=== PATIENT | female | born 1945 | race Two or more races ===

== ENCOUNTER 2019-11-23 11:46 | Emergency (ER) | payer MEDICARE, OTHER ==
[2019-11-23 12:14] VITALS: BMI 34.0
--- NOTE | 2019-11-23 12:25 | PDOC ---
History of Present Illness - General History Source: Patient Exam Limitations: Language Barrier - History of Present Illness Initial Comments: 11/23/19 13:09 74-year-old female past medical history hypertension hyperlipidemia heart arrhythmia on Eliquis presents the ED BIBA after trip and fall striking her head on concrete. Patient states that she was getting into a cab and tripped on the curb hitting her head on the ground denies loss of consciousness remembers events before and after denies hitting any other part of her body was able to get up on her own denies dizziness headache nausea vomiting. Patient states that the fall was mechanical in nature and that she was not dizzy lightheaded or felt like she was going to pass out before after the fall . Patient is currently complaining of burning sensation on the right side of her face where she has a open abrasion. Of note pt ambulates with a cane at baseline. Pt otherwise denies: fevers, chills, syncope, lightheadedness, dizziness, headaches, changes in vision, changes in hearing, neck pain, chest pain, shortness of breath, palpitations, back pain, abdominal pain 11/23/19 13:11 <Jairo Montalvo - Last Filed: 11/23/19 13:50> <Destiny Hart - Last Filed: 11/23/19 14:32> - General Chief Complaint: Injury Stated Complaint: FALL/HEAD INJ Time Seen by Provider: 11/23/19 12:12 Past History - Medical History Anemia: No Asthma: No Cancer: No Cardiac Disorders: Yes (irregular heart rate) CVA: No COPD: No CHF: No Dementia: No Diabetes: No GI Disorders: No Disorders: No HTN: Yes Hypercholesterolemia: Yes Liver Disease: No Seizures: No Thyroid Disease: No - Surgical History Abdominal Surgery: No Appendectomy: Yes Cardiac Surgery: No Cholecystectomy: No Lung Surgery: No Neurologic Surgery: No Orthopedic Surgery: No - Psycho-Social/Smoking History Smoking Status: No Smoking History: Never smoked Number of Cigarettes Smoked Daily: 0 - Substance Abuse Hx (Audit-C & DAST Scrn) How often the patient has a drink containing alcohol: Never Score: In Men: 4 or > Positive; In Women: 3 or > Positive: 0 Screen Result (Pos requires Nsg. Audit-10AR): Negative In the last yr the pt used illegal drug/Rx for NonMed reason: No Score: Yes response is considered Positive: 0 Screen Result (Positive result requires Nsg. DAST-10): Negative <Jairo Mnotalvo - Last Filed: 11/23/19 13:50> <Destiny Hart - Last Filed: 11/23/19 14:32> - Medical History Allergies/Adverse Reactions: Allergies Allergy/AdvReac Type Severity Reaction Status Date / Time No Known Drug Allergies Allergy Verified 11/23/19 11:59 Home Medications: Ambulatory Orders Tramadol HCl [Ultram] 50 mg PO Q6H PRN 05/02/12 Amiodarone HCl 200 mg PO DAILY 11/23/19 Apixaban [Eliquis] 5 mg PO DAILY 11/23/19 Atorvastatin Ca [Lipitor] 40 mg PO HS 11/23/19 Calcium 500Mg/Vit-D 200 Units [Os-Rene 500+D -] 1 combo PO BID 11/23/19 Ferrous Sulfate 325 mg PO DAILY 11/23/19 Furosemide [Lasix] 40 mg PO DAILY 11/23/19 Guaifenesin Dm [Robitussin Dm -] 10 ml PO Q4H 11/23/19 Levothyroxine [Synthroid -] 25 mcg PO DAILY 11/23/19 Lisinopril [Zestril] 2.5 mg PO DAILY 11/23/19 Omeprazole 40 mg PO DAILY 11/23/19 Review of Systems - Review of Systems Constitutional: No: Chills, Fever, Weakness HEENTM: No: Eye Pain, Blurred Vision, Ear Pain, Nose Pain, Nose Bleeding Respiratory: No: Shortness of Breath Cardiac (ROS): No: Chest Pain ABD/GI: No: Abdominal Distended, Nausea, Vomiting : No: Dysuria Musculoskeletal: No: Back Pain, Joint Pain, Muscle Weakness Neurological: No: Headache, Numbness, Paresthesia, Seizure, Tingling, Tremors, Weakness, Dizziness <Jairo Montalvo - Last Filed: 11/23/19 13:50> *Physical Exam - Vital Signs Last Vital Signs Temp Pulse Resp BP Pulse Ox 98 F 62 16 181/72 H 100 11/23/19 11:48 11/23/19 11:48 11/23/19 11:48 11/23/19 11:48 11/23/19 11:48 - Physical Exam 11/23/19 13:12 Gen: AAOx 3, no acute distress, comfortable, no signs of respiratory distress HENT: normocephalic abrasion no acive bleeding with swelling to right maxilla with overlying contusion to maxilla and frontal scalp. Nasal mucosa without erythema. Oropharynx without erythema or exudates. Mucous membranes moist. EYES: PERRL, EOM intact, conjunctiva pink., no signs of entrapment, no pain on EOMI NECK: supple; trachea midline; no JVD, no lymphadenopathy, or thyromegaly CV: RRR no murmurs, gallops, or rubs. CHEST: CTA b/l no wheezing, rales or rhonchi ABD: +BS/ND. no TTP; soft, no rebound, no guarding EXTREMITY: no cyanosis or erythema. 2+ dorsalis pedis, posterior tibial, and radial pulse. No pedal edema; no calf swelling or tenderness SKIN: no rash, warm and dry, no diaphoresis HEME: no purpura or ecchymosis NEURO: normal speech, CN II-XII intact, sensation intact, normal gait, no cerebellar deficits, finger to nose, rapid alternating movement intact negative rhomberg, MS: 5/5 strength in all extremities, FROM intact in all extremities. <Jairo Montalvo - Last Filed: 11/23/19 13:50> - Vital Signs Last Vital Signs Temp Pulse Resp BP Pulse Ox 98 F 62 16 181/72 H 100 11/23/19 11:48 11/23/19 11:48 11/23/19 11:48 11/23/19 11:48 11/23/19 11:48 <Destiny Hart - Last Filed: 11/23/19 14:32> ED Treatment Course - RADIOLOGY Radiology Studies Ordered: Category Date Time Status CERVICAL SPINE CT W/O CONTR [CT] Stat CT Scan 11/23/19 12:[address] W/O CONTRAST [CT] Stat CT Scan 11/23/19 12:[address] WITHOUT CONTRAST [CT] Stat CT Scan 11/23/19 12:12 Ordered <Jairo Montalvo - Last Filed: 11/23/19 13:50> Medical Decision Making - Medical Decision Making 11/23/19 13:14 74-year-old female multiple comorbidities on Eliquis status post trip and fall with head trauma denies loss of consciousness Hypertensive but denies symptoms of hypertensive emergency rest of vital signs stable Rest of physical exam benign low suspicion for any other sources of bleeding We will obtain CT head CT cervical spine as well as CT maxillofacial Will update Tetanus Will reassess based on result CT head, cervical and facial bones negative for any acute findings except soft tissue swelling. Incidental findings explained to pt. Pt is safe and stable for discharge with close follow up with PCP. Strict return precautions given. Supportive care instructions explained and given to pt. Reasons to return emergently to ER explained and given. Importance of follow up with PMD and other specialists as indicated stressed to pt. Pt verbalized understanding of instructions. Pt to follow up with PMD in 2 days. 11/23/19 13:47 <Jairo Montalvo - Last Filed: 11/23/19 13:50> - Medical Decision Making The patient was seen and evaluated in conjunction with midlevel provider under my direct supervision, ancillary studies were reviewed. I agree with the plan as outlined withYANICK Montalvo. HPI, workup/dispo as outlined. VS reviewed, wnl. CT head, facial cervical spine to evaluate for injuries and bleed no acute pathologies noted Anticipate discharge, pcp followup, return precautions 11/23/19 13:22 11/23/19 14:32 <Destiny Hart - Last Filed: 11/23/19 14:32> Discharge - Discharge Information Problems reviewed: Yes - Admission No <Jairo Montalvo - Last Filed: 11/23/19 13:50> <Destiny Hart - Last Filed: 11/23/19 14:32> - Discharge Information Clinical Impression/Diagnosis: Head trauma Qualifiers: Encounter type: initial encounter Qualified Code(s): S09.90XA - Unspecified injury of head, initial encounter Condition: Stable Disposition: HOME - Follow up/Referral Referrals: Anderson Nolasco [Primary Care Provider] - - Patient Discharge Instructions Patient Printed Discharge Instructions: DI for Closed Head Injury Additional Instructions: You must follow up with your doctor BETHEL ORDOÑEZ POSIBLE Print Language: KINYARWANDA - Post Discharge Activity
[2019-11-23] MEDS ORDERED: DIPHTH,PERTUSS(ACELL),TET 0.5 ML DISP.SYRIN IM ONE ×2 (13:46→13:53)
[2019-11-23 15:15] VITALS: BP 146/78; PULSE 88; TEMP 98.5
== END 2019-11-23 15:15 | disposition home or self-care (01) ==
LOC: JER 11:46
PROC: 3E0234Z Introduction of Serum, Toxoid and Vaccine into Muscle, Percutaneous Approach (ICD-10-PCS; principal; 2019-11-23)
DX: S09.90XA Unspecified injury of head, initial encounter (principal); W01.0XXA Fall on same level from slipping, tripping and stumbling without subsequent striking against object, initial encounter
CPT/HCPCS: 70450-TC; 70486-TC; 72125-TC; 90715; 99284-25

== ENCOUNTER 2020-05-06 05:51 | Emergency (ER) | payer MEDICARE, OTHER ==
[2020-05-06] MEDS ORDERED: ACETAMINOPHEN 1000 MG/100 ML VIAL (NON FORMULARY) IVPB ONE (06:02)
[2020-05-06 06:03] VITALS: TEMP 98.1; BMI 27.3
[2020-05-06] MEDS ORDERED: SODIUM CHLORIDE 1,000 ML IV SCH (06:15)
[2020-05-06 07:03] LABS: HEMATOCRIT 33.2 % (32.4-45.2); HEMOGLOBIN 10.6 GM/dL (10.7-15.3); MCH 23.2 pg (25.7-33.7); MCHC 32.1 g/dl (32.0-36.0); MEAN CELL VOLUME 72.4 fl (80-96); MEAN PLT VOLUME 8.2 fl (7.5-11.1); PLATELET COUNT 200 K/MM3 (134-434); RBC 4.58 M/mm3 (3.60-5.2); RDW 17.9 % (11.6-15.6); WHITE BLOOD COUNT 4.7 K/mm3 (4.0-10.0)
[2020-05-06 07:25] LABS: INR 1.4 (0.83-1.09); PROTHROMBIN TIME (PATIENT) 16.8 SEC (9.7-13.0)
[2020-05-06 07:28] LABS: ACTIVATED PTT 33.6 SECONDS (25.2-36.5)
[2020-05-06 07:30] LABS: CHLORIDE 105 mmol/L (98-107); SODIUM 137 mmol/L (136-145)
[2020-05-06 07:32] LABS: CALCIUM 8.1 mg/dL (8.5-10.1)
[2020-05-06 07:33] LABS: ANION GAP 7 MMOL/L (8-16); BLOOD UREA NITROGEN 16.4 mg/dL (7-18); CO2 25 mmol/L (21-32); GLUCOSE,RANDOM 110 mg/dL (74-106)
[2020-05-06 07:36] LABS: SGOT/AST 49 U/L (15-37); SGPT/ALT 52 U/L (13-61)
[2020-05-06 07:37] LABS: BILIRUBIN,TOTAL 0.6 mg/dL (0.2-1)
[2020-05-06 07:38] LABS: ALK PHOS 74 U/L (45-117)
[2020-05-06] MEDS ORDERED: LIDOCAINE 5% TOPICAL PATCH TP ONE (08:23)
[2020-05-06] MEDS ORDERED: LIDOCAINE 5% TOPICAL PATCH ONE (10:36)
[2020-05-06 15:34] VITALS: BP 128/58; PULSE 61
[2020-05-06 15:41] LABS: URINE APPEARANCE CLOUDY; URINE COLOR YELLOW
[2020-05-06 15:42] LABS: URINE BILIRUBIN NEGATIVE (NEGATIVE); URINE GLUCOSE (UA) NEGATIVE (NEGATIVE); URINE KETONE NEGATIVE (NEGATIVE)
[2020-05-06 15:43] LABS: URINE NITRITE NEGATIVE (NEGATIVE); URINE PROTEIN 1+ (NEGATIVE)
[2020-05-06 15:44] LABS: URINE LEUK ESTERASE NEGATIVE (NEGATIVE)
[2020-05-06 19:47] LABS: EPI CELLS 31.2 /uL (0-25.1); HYALINE CASTS 2.44 /uL (0-3.1); URINE BACTERIA 2526.6 /uL (0-1359); URINE RBC 35.8 /uL (0-23.9); URINE WBC 30.4 /uL (0-25.8)
[2020-05-06 19:50] LABS: YEAST NEGATIVE (NEGATIVE)
[2020-05-06] MEDS ORDERED: LIDOCAINE PATCH REMOVAL MC ONE (20:00)
== END 2020-05-06 16:00 | disposition home or self-care (01) ==
LOC: JER 05:51
PROC: 3E0337Z Introduction of Electrolytic and Water Balance Substance into Peripheral Vein, Percutaneous Approach (ICD-10-PCS; principal; 2020-05-06)
PROC: 3E033GC Introduction of Other Therapeutic Substance into Peripheral Vein, Percutaneous Approach (ICD-10-PCS; principal; 2020-05-06)
DX: M54.5 Low back pain (principal); W19.XXXA Unspecified fall, initial encounter
CPT/HCPCS: 36415; 70450-TC; 71045-TC-FY; 72128-TC; 72131-TC; 72170-TC-FY; 73562-TC-LT-FY; 73562-TC-RT-FY; 74175-TC; 80053; 81003; 84484; 85027; 85610; 85730; 86850; 86900; 86901; 87086; 99285-25; J0131; Q9967

== ENCOUNTER 2023-05-05 13:38 | Observation (INO) | payer MEDICARE, OTHER ==
[2023-05-05] MEDS ORDERED: ACETAMINOPHEN 1000 MG/100 ML BAG IVPB ONE (15:36)
[2023-05-05] MEDS ORDERED: CEFTRIAXONE 1,000 MG in DEXTROSE 5%-WATER - 50 ML IVPB ONE (16:03)
[2023-05-05] MEDS ORDERED: AZITHROMYCIN IVPB 500 MG in DEXTROSE 5%-WATER - 250 ML IVPB ONE (16:04)
[2023-05-05] MEDS ORDERED: ACETAMINOPHEN INJECTION 100 ML IVPB ONE (16:08)
[2023-05-05] MEDS ORDERED: AZITHROMYCIN IVPB 500 MG/250 ML BAG IVPB ONE (16:08)
[2023-05-05] MEDS ORDERED: CEFTRIAXONE 1 GM/50 ML BAG ONE (16:08)
[2023-05-05 16:30] LABS: BASO % 0.6 % (0-2.0); EOS % 3.9 % (0-4.5); HEMOGLOBIN 11.8 GM/dL (10.7-15.3); LYMPH % 15.6 % (8-40); MCH 24.9 pg (25.7-33.7); MCHC 31.9 g/dl (32.0-36.0); MEAN CELL VOLUME 78.3 fl (80-96); MEAN PLT VOLUME 7.9 fl (7.5-11.1); MONO % 7.1 % (3.8-10.2); NEUT % 72.8 % (42.8-82.8); PLATELET COUNT 216 10^3/uL (134-434); RBC 4.73 M/mm3 (3.60-5.2); RDW 16.2 % (11.6-15.6); WHITE BLOOD COUNT 6.1 K/mm3 (4.0-10.0)
[2023-05-05 16:41] LABS: POTASSIUM 4.8 mmol/L (3.5-5.1)
[2023-05-05 16:43] LABS: ALBUMIN 3.4 g/dl (3.4-5.0); BLOOD UREA NITROGEN 14.7 mg/dL (7-18); CALCIUM 9.1 mg/dL (8.5-10.1)
[2023-05-05 16:46] LABS: CREATININE 0.8 mg/dL (0.55-1.3)
[2023-05-05 16:48] LABS: BILIRUBIN,TOTAL 1.4 mg/dL (0.2-1); TOT PROT 6.8 g/dl (6.4-8.2)
[2023-05-06] MEDS ORDERED: ATORVASTATIN CA 40 MG TABLET (FP) ONE (00:08)
[2023-05-06 06:44] LABS: BASO % 0.6 % (0-2.0); EOS % 3.4 % (0-4.5); HEMOGLOBIN 12.2 GM/dL (10.7-15.3); LYMPH % 12.8 % (8-40); MCH 25.2 pg (25.7-33.7); MCHC 32.1 g/dl (32.0-36.0); MEAN CELL VOLUME 78.2 fl (80-96); MEAN PLT VOLUME 7.5 fl (7.5-11.1); MONO % 6.9 % (3.8-10.2); NEUT % 76.3 % (42.8-82.8); PLATELET COUNT 202 10^3/uL (134-434); RBC 4.86 M/mm3 (3.60-5.2); RDW 16.5 % (11.6-15.6); WHITE BLOOD COUNT 6.1 K/mm3 (4.0-10.0)
[2023-05-06 07:00] LABS: POTASSIUM 3.7 mmol/L (3.5-5.1)
[2023-05-06 07:07] LABS: CALCIUM 9.1 mg/dL (8.5-10.1)
[2023-05-06 07:08] LABS: MAGNESIUM 2.2 mg/dL (1.8-2.4)
[2023-05-06 07:10] LABS: CREATININE 0.7 mg/dL (0.55-1.3)
[2023-05-06] MEDS ORDERED: FUROSEMIDE 40 MG/4 ML INJECTABLE VIAL ONE (13:59)
[2023-05-06] MEDS: FUROSEMIDE 40 MG/4 ML INJECTABLE VIAL IVPUSH SCH (14:01)
[2023-05-06] MEDS ORDERED: IBUPROFEN 600 MG TABLET (FP) PO PRN (16:21)
[2023-05-06 18:43] LABS: INR 2.23 (0.83-1.09); PROTHROMBIN TIME (PATIENT) 25.7 SEC (9.7-13.0)
[2023-05-06 18:49] VITALS: BMI 31.5
[2023-05-06] MEDS ORDERED: ATORVASTATIN CA 40 MG TABLET (FP) PO SCH (22:00)
[2023-05-07 00:01] VITALS: RESP 20
[2023-05-07] MEDS ORDERED: METOPROLOL TARTRATE 50 MG TABLET (FP) PO SCH (10:00)
[2023-05-07] MEDS: FUROSEMIDE 40 MG/4 ML INJECTABLE VIAL IVPUSH SCH (10:05)
[2023-05-07 16:34] LABS: INR 1.87 (0.83-1.09); PROTHROMBIN TIME (PATIENT) 21.6 SEC (9.7-13.0)
[2023-05-07 16:35] VITALS: BP 155/102; PULSE 69; TEMP 98
== END 2023-05-07 17:24 | disposition home or self-care (01) ==
LOC: JER 13:38 → JERBED 17:49 → J4W 05-06 15:39
PROVIDERS: ADMIT Internal Medicine; ATTEND Internal Medicine
PROC: 3E033NZ Introduction of Analgesics, Hypnotics, Sedatives into Peripheral Vein, Percutaneous Approach (ICD-10-PCS; principal; 2023-05-05)
PROC: 3E03329 Introduction of Other Anti-infective into Peripheral Vein, Percutaneous Approach (ICD-10-PCS; 2023-05-05)
PROC: 3E033GC Introduction of Other Therapeutic Substance into Peripheral Vein, Percutaneous Approach (ICD-10-PCS; 2023-05-05)
DX: N18.9 Chronic kidney disease, unspecified (principal); N17.9 Acute kidney failure, unspecified; Z79.01 Long term (current) use of anticoagulants; I10 Essential (primary) hypertension; E78.5 Hyperlipidemia, unspecified; J18.9 Pneumonia, unspecified organism; I48.91 Unspecified atrial fibrillation; R00.1 Bradycardia, unspecified; M54.50 Low back pain, unspecified; G89.29 Other chronic pain; R94.31 Abnormal electrocardiogram [ECG] [EKG]; R91.8 Other nonspecific abnormal finding of lung field; J90 Pleural effusion, not elsewhere classified; J98.4 Other disorders of lung
CPT/HCPCS: 0241U-QW; 36415; 71045-TC-FY; 71250-TC; 80048; 80053; 80061; 83735; 83880; 84439; 84443; 84484; 85025; 85379; 85610; 87040; 87086; 87899; 93005; 93010; 96365; 96367; 96375; 99285-25; G0378

== ENCOUNTER 2024-01-22 10:41 | Emergency (ER) | payer MEDICARE, OTHER ==
[2024-01-22 11:07] VITALS: RESP 16; TEMP 98.8; BMI 31.8
[2024-01-22 11:58] LABS: EPI CELLS 4 /uL (0-25.1); HYALINE CASTS 7 /uL (0-3.1); PH,URINE 6.5 (5.0-8.0); URINE APPEARANCE CLOUDY; URINE BACTERIA 5704 /uL (0-1359); URINE BILIRUBIN NEGATIVE (NEGATIVE); URINE COLOR YELLOW; URINE GLUCOSE (UA) NEGATIVE (NEGATIVE); URINE KETONE NEGATIVE (NEGATIVE); URINE LEUK ESTERASE 3+ (NEGATIVE); URINE NITRITE POSITIVE (NEGATIVE); URINE PROTEIN 1+ (NEGATIVE); URINE RBC 337 /uL (0-23.9); URINE WBC 2728 /uL (0-25.8)
[2024-01-22 12:00] LABS: BASO % 0.5 % (0-2.0); EOS % 4.9 % (0-4.5); HEMATOCRIT 36.1 % (32.4-45.2); HEMOGLOBIN 11.6 GM/dL (10.7-15.3); INR 2.39 (0.83-1.09); LYMPH % 13.1 % (8-40); MCH 24.3 pg (25.7-33.7); MCHC 32.1 g/dl (32.0-36.0); MEAN CELL VOLUME 75.7 fl (80-96); MEAN PLT VOLUME 7.3 fl (7.5-11.1); MONO % 7.7 % (3.8-10.2); NEUT % 73.8 % (42.8-82.8); PLATELET COUNT 247 10^3/uL (134-434); PROTHROMBIN TIME (PATIENT) 26.3 SEC (9.7-13.0); RBC 4.77 M/mm3 (3.60-5.2); RDW 19.5 % (11.6-15.6); WHITE BLOOD COUNT 7.5 K/mm3 (4.0-10.0)
[2024-01-22 12:16] LABS: POTASSIUM 4.4 mmol/L (3.5-5.1)
[2024-01-22 12:18] LABS: ALBUMIN 3.4 g/dl (3.4-5.0); BLOOD UREA NITROGEN 20.1 mg/dL (7-18)
[2024-01-22 12:21] LABS: CREATININE 0.8 mg/dL (0.55-1.3); YEAST NOT PRESENT (NEGATIVE)
[2024-01-22 12:23] LABS: BILIRUBIN,TOTAL 1.1 mg/dL (0.2-1); TOT PROT 7.3 g/dl (6.4-8.2)
[2024-01-22 13:36] LABS: HIV INTERPRETATION NEGATIVE (NEGATIVE)
[2024-01-22] MEDS ORDERED: CEPHALEXIN MONOHYDRATE 500 MG CAPSULE (UD) ONE (16:31)
[2024-01-22] MEDS: CEPHALEXIN MONOHYDRATE 500 MG CAPSULE (UD) PO ONE (16:40)
[2024-01-22 16:43] VITALS: BP 127/60; PULSE 63
== END 2024-01-22 16:43 | disposition home or self-care (01) ==
LOC: JER 10:41
DX: N39.0 Urinary tract infection, site not specified (principal); R31.9 Hematuria, unspecified; R30.0 Dysuria; R35.0 Frequency of micturition; R10.30 Lower abdominal pain, unspecified
CPT/HCPCS: 36415; 74176-TC; 80053; 81003; 85025; 85610; 86803; 86850; 86900; 86901; 87086; 87186; 87389; 99284-25

== ENCOUNTER 2024-09-28 12:31 | Emergency (ER) | payer MEDICARE, OTHER ==
[2024-09-28 12:42] VITALS: TEMP 97.9; BMI 34.0
[2024-09-28 13:08] LABS: URINE APPEARANCE CLEAR; URINE BILIRUBIN NEGATIVE (NEGATIVE); URINE COLOR YELLOW; URINE GLUCOSE (UA) NEGATIVE (NEGATIVE); URINE KETONE NEGATIVE (NEGATIVE); URINE LEUK ESTERASE 3+ (NEGATIVE); URINE NITRITE NEGATIVE (NEGATIVE); URINE PROTEIN 1+ (NEGATIVE)
[2024-09-28 13:19] LABS: EPI CELLS 0.7 /uL (0-25.1); HYALINE CASTS 0.12 /uL (0-3.1); URINE RBC 9.4 /uL (0-23.9); URINE WBC 226.5 /uL (0-25.8)
[2024-09-28 13:20] LABS: URINE BACTERIA 3017.1 /uL (0-1359)
[2024-09-28 13:55] LABS: ABSOLUTE IMMATURE GRANULOCYTES 0.02 x10^3/uL (0.0-0.031); BASOPHILS # 0.02 x10^3/uL (0.01-0.08); EOSINOPHIL % 3.3 % (0.7-5.8); EOSINOPHILS # 0.21 x10^3/uL (0.04-0.36); HEMATOCRIT 41.7 % (34.1-44.9); MCHC 31.2 g/dl (32.2-35.5); MEAN CELL VOLUME 84.2 fl (79.4-94.8); MEAN PLT VOLUME 10.5 fl (9.4-12.3); MONOCYTE # 0.49 x10^3/uL (0.24-0.86); MONOCYTE % 7.8 % (4.7-12.5); PLATELET COUNT 311 x10^3/uL (182-369); RDW 14.9 % (12.4-16.6)
[2024-09-28 14:59] LABS: ALBUMIN 3.8 g/dl (3.4-5.0); CALCIUM 9.7 mg/dL (8.5-10.1)
[2024-09-28 15:00] LABS: BLOOD UREA NITROGEN 12.4 mg/dL (7-18); CHLORIDE 106 mmol/L (98-107); CO2 30 mmol/L (21-32); GLUCOSE,RANDOM 94 mg/dL (74-106); SODIUM 142 mmol/L (136-145)
[2024-09-28 15:02] LABS: ANION GAP 6 mmol/L (4-13); POTASSIUM 6.2 mmol/L (3.5-5.1)
[2024-09-28 15:03] LABS: SGOT/AST 75 U/L (15-37); SGPT/ALT 29 U/L (13-61)
[2024-09-28 15:04] LABS: BILIRUBIN,TOTAL 1.2 mg/dL (0.2-1); CREATININE 0.8 mg/dL (0.55-1.3); TOT PROT 7.8 g/dl (6.4-8.2)
[2024-09-28 15:06] LABS: ALK PHOS 129 U/L (45-117)
[2024-09-28] MEDS ORDERED: CEFTRIAXONE 1 G/50 ML PREMIX 50 ML IVPB ONE (16:05)
[2024-09-28] MEDS: CEFTRIAXONE 1,000 MG in DEXTROSE 5%-WATER - 50 ML IVPB ONE (16:11)
[2024-09-28 19:02] VITALS: BP 164/72; PULSE 75; RESP 14
== END 2024-09-28 19:02 | disposition home or self-care (01) ==
LOC: JER 12:31
DX: R35.0 Frequency of micturition (principal); R10.30 Lower abdominal pain, unspecified; R53.83 Other fatigue
CPT/HCPCS: 36415; 80053; 81003; 83605; 84132; 85025; 87086; 87186; 96365; 99284-25